=== PATIENT | male | born 1960 | race Caucasian/White ===

== ENCOUNTER 2019-08-02 11:34 | Day surgery (SDC) | payer BC ==
[~2019-08-02 11:34] MED LIST: Buffered Lidocaine 1% SYRIN* 1 ML/SYRINGE INTRADERM ONE; Famotidine IV* 10 MG/ML 2 ML (20 mg) IV ONE; Lactated Ringers 1000 ML Bag* 1,000 ML IV SCH
[2019-08-02] MEDS ORDERED: Famotidine IV* 10 MG/ML 2 ML (20 mg) ONE (12:49)
[2019-08-02] MEDS ORDERED: Lidocaine 2% PF * 5 ML VIAL ONE (13:48)
[2019-08-02] MEDS ORDERED: Ondansetron INJ* 2 MG/ML VIAL ONE (13:48)
[2019-08-02] MEDS ORDERED: Dexamethasone IV* 4 MG/ML 1 ML (4 MG) ONE ×2 (13:48→15:29)
[2019-08-02] MEDS ORDERED: Propofol* 10 MG/ML 20 ML BTL ONE (13:48)
[2019-08-02] MEDS ORDERED: Cisatracurium* 2 MG/ML MDV 5 ML ONE (13:49)
[2019-08-02] MEDS ORDERED: fentaNYL* 50 MCG/ML 2 ML VIAL (100 MCG VIAL) ONE (13:49)
[2019-08-02] MEDS ORDERED: Midazolam* 1 MG/ML 5 ML VIAL (5 MG) ONE (13:49)
[2019-08-02] MEDS ORDERED: Lidocaine 1% w EPI 1:100,000* MDV 20 ML VIAL ONE (14:38)
[2019-08-02] MEDS ORDERED: EPHEDrine (Pressors)* 50 MG/ML VIAL ONE (15:25)
[2019-08-02] MEDS ORDERED: fentaNYL* 50 MCG/ML 2 ML VIAL (100 MCG VIAL) IV PRN (15:46)
[2019-08-02] MEDS ORDERED: Ondansetron INJ* 2 MG/ML VIAL IV PRN (15:46)
[2019-08-02] MEDS ORDERED: Naloxone* 0.4 MG/ML 1 ML VIAL IV PRN (15:46)
[2019-08-02 17:46] VITALS: BP 149/83
--- NOTE | 2019-08-02 22:20 | OP ---
DATE OF OPERATION: 08/02/19 - [facility] DATE OF : 58 SURGEON: Jj Beckett MD CARDIOPULMONARY TECHNICIAN AND EEG TECH: Dr. Gilliam. ANESTHESIOLOGIST: Dr. Paredes. PRE-OP DIAGNOSIS: Left neck lymph node enlargement. POST-OP DIAGNOSIS: Left neck lymph node enlargement. OPERATIVE PROCEDURE: Deep neck jugular node biopsy. BRIEF HISTORY: This pleasant 59-year-old gentleman presented with enlarged lymph node, previous fine-needle aspiration to the reactive lymph node, but unfortunately the lymph node continued to stay enlarged and remained relatively symptomatic with some concerns for pathology that was not easily identifiable on a fine-needle aspiration. DESCRIPTION OF PROCEDURE: The patient was brought to the operating room. General anesthesia was given, the patient was intubated. Left neck was then prepped and draped in the usual fashion. A curvilinear incision made at approximately 2 cm below the angle of the mandible. Subplatysmal flaps were elevated. Sternocleidomastoid was identified. Incision was made just anterior to it. Careful blunt and sharp dissection were carried out until the lymph node was identified, measured about 2 cm x 2 cm. Carefully elevated up the jugular vein. Once the lymph node was removed it was sent as a fresh specimen. The wound was copiously irrigated, closed in a single layer using Vicryl. Small dressing was applied over the neck. The patient was awakened, sent to the recovery room in stable condition. COUNTS: Instrument and sponge count correct. BLOOD LOSS: Minimal. [id number]/CPS #: [id number] MTDD
== END 2019-08-02 17:45 | disposition home or self-care (01) ==
LOC: OR 11:34
PROVIDERS: ATTEND Otolaryngology
DX: C81.91 Hodgkin lymphoma, unspecified, lymph nodes of head, face, and neck (principal); I42.9 Cardiomyopathy, unspecified; G47.33 Obstructive sleep apnea (adult) (pediatric); K21.9 Gastro-esophageal reflux disease without esophagitis; D86.9 Sarcoidosis, unspecified; J45.909 Unspecified asthma, uncomplicated; F41.8 Other specified anxiety disorders
CPT/HCPCS: 88184; 88187; 88188; 88189; 88305; 88333; 88341; 88342; J1100; J2250; J2405; J2704; J3010

== ENCOUNTER 2019-10-04 13:06 | Day surgery (SDC) | payer BC ==
[2019-10-04] MEDS ORDERED: ceFAZolin 2 GM in NS PREMIX(*) 2 GM/100 ML BAG IVPB ONE ×2 (13:32→13:51)
[2019-10-04] MEDS ORDERED: Buffered Lidocaine 1% SYRIN* 1 ML/SYRINGE INTRADERM ONE ×2 (13:32→13:51)
[2019-10-04] MEDS ORDERED: NS 0.9% 500 ML* 500 ML IV ONE (13:32)
--- NOTE | 2019-10-04 14:08 | PN ---
Progress Note - Progress Note Date of Service: 10/04/19 Note: Mario Alberto Guzman is a 59 year-old man with a h/o sarcoidosis who was recently diagnosed with Hodgkin's lymphoma. He is scheduled to start chemotherapy next week. He was seen in clinic for port placement. He has been fatigued but otherwise in his usual state of health. Denies chest pain, SOB, abdominal pain, nausea, or fevers/chills. Discussed risks including but not limited to bleeding, infection, arrhythmias, or pneumothorax. Plan: Power port placement under fluoroscopy. Cefazolin 2g.
[2019-10-04] MEDS ORDERED: oxyCODONE/Acetamin 5/325 MG* TAB PO ONE (16:00)
[2019-10-04] MEDS ORDERED: oxyCODONE/Acetamin 5/325 MG* TAB ONE (16:00)
[2019-10-04 16:06] VITALS: BP 159/88
--- NOTE | 2019-10-04 16:06 | BRIEFOPN ---
Brief Operative/Procedure Note - Operation Details Pre-Op Diagnosis: Lymphoma Post-Op Diagnosis: Same Procedures: Placement of 8Fr Power Port Surgeon(s)/Proceduralists: Maria Elena Keyes MD Anesthesia: Local Estimated Blood Loss: 10 ml Findings: Successful placement of PowerPort Specimen(s)/Culture(s) Description: None Complications: None
--- NOTE | 2019-10-04 19:44 | OP ---
Operative Report - Blank - Operative Report Date of Operation: 10/04/19 Note: PRE-OP DX: Lymphoma POST-OP DX: Same PROCEDURE: Placement of 8Fr PowerPort SURGEON: Maria Elena Keyes MD ANESTHESIA: Local (Total of 28 ml lidocaine 1%) EBL: 10ml INDICATION: Mario Alberto Guzman is a 59 year-old man with a history of sarcoidosis who was recently diagnosed with lymphoma. He will start chemotherapy and was seen in clinic to discuss port placement. We discussed risks including but not limited to bleeding, infection, pneumothorax, arrhythmias. Written consent was obtained from the patient. DESCRIPTION: The patient was brought to the OR and placed in the supine position on the OR table. SCDs were placed. The patient was warmed. He received cefazolin 2g. The right neck and upper chest were prepped and draped in the usual sterile fashion. A timeout confirming the patient's name, date of , and procedure was called. Lidocaine 1% was injected into the skin over the right internal jugular vein. The vein was cannulated with a needle under ultrasound guidance. The wire was advanced through the needle, and the needle was removed. Fluoroscopy confirmed correct placement of the wire in the superior vena cava. Next, lidocaine 1% was injected into the skin at the planned port site. A transverse incision was made with a scalpel and carried down to the fascia with electrocautery. A pocket under the skin was made for the port using blunt dissection and electrocautery. Lidocaine 1% was then injected into the skin overlying the catheter location. A stab incision was made at the wire. The catheter was then tunneled through the subcutaneous tissue from the wire to the pocket. The vein was dilated, and then the pull-away sheath was placed into the vein. Fluoroscopy confirmed placement of the sheath in the superior vena cava. The catheter was advanced into the sheath as the sheath was pulled away and out. Under fluoroscopy, the catheter was pulled back until the tip was at the cavoatrial junction. The catheter was then cut to the appropriate length. The catheter was connected to the port stem, and the catheter lock advanced. The port was placed into the subcutaneous pocket and sutured to the soft tissue using 3-0 Prolene on each side. A Castellon needle was used to draw back blood and flush the port. A total of 5 mL of heparin 5000 units/5 mL was flushed through the port and catheter. The subcutaneous pocket was closed with interrupted 3-0 Vicryl in the deep dermal layer. The skin was closed with a running 4-0 monocryl. The neck incision was closed with 4-0 monocryl. Steri-Strips were placed over both incisions. The chest incision was covered with sterile gauze and Tegaderm. The patient tolerated the procedure well. He was brought to recovery in stable condition. A chest x-ray in recovery confirmed correct placement of the port and catheter in the superior vena cava without complication.
== END 2019-10-04 16:43 | disposition home or self-care (01) ==
LOC: OR 13:06
PROVIDERS: ATTEND Surgery Surgical Critical Care
DX: C81.11 Nodular sclerosis Hodgkin lymphoma, lymph nodes of head, face, and neck (principal); D86.89 Sarcoidosis of other sites; J45.909 Unspecified asthma, uncomplicated; K21.9 Gastro-esophageal reflux disease without esophagitis; E78.5 Hyperlipidemia, unspecified; F32.9 Major depressive disorder, single episode, unspecified
CPT/HCPCS: 71045; 76000; A9270-GY; C1788; J0690